=== PATIENT | female | born 1935 | race Caucasian/White ===

== ENCOUNTER → 2017-01-13 | Outpatient (CLI) | payer MEDICARE, BC ==
[~2017-01-13] MED LIST: ACETAMINOPHEN; ALLERGY RELIEF25 MG PO; AMLODIPINE BESYL5 MG PO; B-12500 MCG PO; CALCIUM + D 6001 TA1 PO; CALCIUM 500 +1 EAC2 PO; CALCIUM500 MG; CELEBREX; CELEBREX PO; CELEBREX50 MG PO; CITRACAL200 M1 PO; CYMBALTA PO; CYMBALTA30 MG PO; FISH OIL 1,0001 CA2 PO; FLEXERIL; FLEXERIL10 M1 PO; FLEXERIL10 MG PO; GABAPENTIN600 MG PO; GLUCOSAMINE; HAIR, SKIN & N1 EAC1 PO; IRON325 ( 651 PO; LIPITOR20 MG PO; LOPRESSOR PO; MAGNESIUM250 M1 PO; MAGNESIUM400 MG PO; MEDROL DOSEPAK4 MG PO; MEDROL4 MG/DOSE- PO; MIRTAZAPINE30 M1 PO; MULTI VITAMIN1 EACH PO; MULTI-VITAMIN1 TAB; NEPHROCAPS CAPSU1 MG; NEURONTIN; NEURONTIN600 MG PO; PREDNISONE PO; PRILOSEC20 M1 PO; PRILOSEC20 MG PO; SALMON OIL; SALMON OIL 1,001 CAP PO; TYLENOL #3; TYLENOL #3 PO; TYLENOL WITH C1 EACH PO; TYLENOL/CODEINE1 TA1 PO; VITAMIN B12-FO1 EACH PO; VITAMIN D35000 UNIT PO; VITAMIN D400 UNI2 PO; ZEGERID40 MG/PKT; ZINC CHELATE15 MG PO; ZINC10 MG PO
--- NOTE | ~2017-01-13 | CT2 ---
[facility] A Service of [facility] RADIOLOGY TEXT RESULTS PATIENT: EVERT LOVETT LOCATION: [facility] : 37 UNIT #: [id number] AGE: [address]: MATTHEW GREGORIO SEX: F ORDER DR: [id number] [place] [id number] O MR#: [id number] Acc #: [id number] NAME: EVERT LOVETT : 1935 SEX: F STUDY DATE/TIME: 01/13/2017 15:20 UNIT: [facility] ROOM: STUDY DESCRIPTION: CT Abd and Pelv W Cont Attending Physician: Matthew Gregorio Aprn Referring Physician: Matthew Gregorio Aprn Ordering Physician: Matthew Gregorio Aprn Primary Care Physician: Hansel Dickerson M.D. MEDICAL IMAGING REPORT This report is preliminary unless electronic signature is present. EXAM CT abdomen and pelvis with contrast INDICATIONS Nausea and unexplained weight loss of 15 pounds since knee surgery on December 13, 2016. PROCEDURE Contrast-enhanced CT of the abdomen and pelvis. 100 mL of Isovue-370. This CT exam was performed with one or more of the following radiation dose reduction techniques: automatic exposure control, adjustment of mA and/or kV according to patient size, and iterative reconstruction. COMPARISON 02/23/2016 FINDINGS ABDOMEN WITH CONTRAST: Included lung bases are clear. The liver measures 18.3 cm. The liver is not frankly cirrhotic in morphology. The spleen is markedly enlarged, measuring approximately 20.7 cm in length. Left kidney is smaller than the right. Adrenal glands, pancreas, and gallbladder unremarkable. Bowel loops are nondilated. The appendix is nondilated. PELVIS WITH CONTRAST: No pelvic mass or fluid. No aggressive appearing bone lesion. IMPRESSION 1. No definite acute findings. 2. Significant splenomegaly. 3. Other incidental findings as above. [facility] A Service [facility] RADIOLOGY TEXT RESULTS PATIENT: EVERT LOVETT LOCATION: [facility] : 37 UNIT #: [id number] AGE: [address]: MATTHEW GREGORIO SEX: F ORDER DR: Dictated by... Marcos Kauffman M.D. THIS IS AN ELECTRONICALLY VERIFIED REPORT Marcos Kauffman M.D. at 01/16/2017 8:24 AM DEONTE/megan TD: 01/13/2017 17:44 JOB #: [id number] MEDICAL IMAGING REPORT Page 1 of 1
[2017-01-13 14:25] LABS: POC - CREATININE 0.79 mg/dL (0.44-1.03); POC - GFR >60.0 mL/min (>60)
== END | disposition home or self-care (01) ==
LOC: SCT 14:05
PROVIDERS: Nurse Practitioner
DX: R11.0 Nausea (principal); R63.4 Abnormal weight loss; R16.1 Splenomegaly, not elsewhere classified
CPT/HCPCS: 74177; 82565; Q9967